=== PATIENT | male | born 1970 | race Caucasian/White ===

== ENCOUNTER 2022-03-14 07:54 | Emergency (ER) | payer BC, SELFPAY ==
[2022-03-14 07:59] VITALS: BP 161/97; PULSE 80; RESP 16; TEMP 36.4; O2SAT 97; BMI 33.2
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
--- NOTE | 2022-03-14 08:27 | CRLHL7_ITS ---
For Patients: As a result of the Cures Act, medical imaging exams and procedure reports are released immediately into your electronic medical record. You may view this report before your referring provider. If you have questions, please contact your health care provider. Indication: trauma, swelling Technique: Three views right wrist Comparison: None Findings: Small chronic ossicle adjacent to the 1st carpometacarpal joint. Soft tissue swelling is present. There is no acute fracture. No carpal malalignment. Impression: No sign of acute injury. Dictated by Kain Sharpe MD @ 03/14/2022 8:48:34 AM (Electronically Signed)
[2022-03-14] MEDS: TETANUS/DIPHTH/PERTUSSIS 0.5 ML SYRINGE IM (09:27)
== END 2022-03-14 09:42 | disposition home or self-care (01) ==
PROVIDERS: Emergency Provider Family Medicine; PCP Family Medicine
DX: S60.211A Contusion of right wrist, initial encounter (principal); W22.8XXA Striking against or struck by other objects, initial encounter; Y93.9 Activity, unspecified; Y92.69 Other specified industrial and construction area as the place of occurrence of the external cause; Y99.0 Civilian activity done for income or pay
CPT/HCPCS: 73110; 90471; 90715; 99283

== ENCOUNTER 2022-10-21 10:20 | Outpatient (CLI) | payer BC, SELFPAY | END 2022-10-21 10:21 | disposition home or self-care (01) | PROVIDERS: PCP Family Medicine; Visit Provider Family Medicine | DX: Z00.00 Encounter for general adult medical examination without abnormal findings (principal); R53.83 Other fatigue; I10 Essential (primary) hypertension; Z12.5 Encounter for screening for malignant neoplasm of prostate; Z13.29 Encounter for screening for other suspected endocrine disorder | CPT/HCPCS: 80048; 84153; 84403; 84443 ==

== ENCOUNTER 2024-02-14 09:50 | Outpatient (CLI) | payer BC, SELFPAY | END 2024-02-14 09:51 | disposition home or self-care (01) | PROVIDERS: PCP Family Medicine; Visit Provider Family Medicine | DX: Z00.00 Encounter for general adult medical examination without abnormal findings (principal); I10 Essential (primary) hypertension; Z13.6 Encounter for screening for cardiovascular disorders; Z12.5 Encounter for screening for malignant neoplasm of prostate; Z13.89 Encounter for screening for other disorder | CPT/HCPCS: 80048; 80061; G0103 ==

== ENCOUNTER 2025-01-31 08:30 | Outpatient (CLI) | payer BC, SELFPAY | END 2025-01-31 08:31 | disposition home or self-care (01) | PROVIDERS: PCP Family Medicine; Visit Provider Family Medicine | DX: Z12.5 Encounter for screening for malignant neoplasm of prostate (principal); I10 Essential (primary) hypertension | CPT/HCPCS: 80048; G0103 ==